=== PATIENT | female | born 1955 | race Caucasian/White ===

== ENCOUNTER 2019-02-06 19:05 | Emergency (ER) | payer MEDICARE ==
--- NOTE | 2019-02-06 19:45 | ED ---
Adult Trauma - HPI Summary HPI Summary: This pt is a 63 y/o female presenting to [facility] c/o right sided back pain s/p mechanical fall today. Pt reports that at about 18:00 today pt stepped on an icy step and fell down two steps. She notes she landed flat and hit her right sided back. Denies head strike or LOC. She reports she was able to ambulate after fall. Pt describes a sharp pain on the right side of her back. Denies abd pain, headache. Her medications include Crestor and Zoloft. Denies any anticoagulants. - History of Current Complaint Chief Complaint: EDGeneral Stated Complaint: FELL DOWN THE STAIRS PER PT Time Seen by Provider: 02/06/19 19:42 Hx Obtained From: Patient Mechanism of Injury: Fall Ambulatory at the Scene: Yes Loss of Consciousness: no loss of consciousness Onset/Duration: Started Hours Ago, Still Present Onset of Pain: Immediate Current Severity: Severe Pain Intensity: 10 Pain Scale Used: 0-10 Numeric Location: Back - right sided Character: Sharp Aggravating Factor(s): Other - lying down Alleviating Factor(s): Other - standing up Associated Signs & Symptoms: Negative: Abdominal Pain, Fever, Loss of Consciousness, Significant Blood Loss, Other: - headache - Allergy/Home Medications Allergies/Adverse Reactions: Allergies Allergy/AdvReac Type Severity Reaction Status Date / Time doxycycline Allergy Nausea And Verified 02/06/19 19:22 Vomiting Penicillins Allergy Hives Verified 02/06/19 19:22 Home Medications: Home Medications Rosuvastatin Calcium [Crestor] 20 mg PO DAILY WITH MEAL 02/06/19 [History Confirmed 02/06/19] Sertraline HCl [Zoloft] 50 mg PO BEDTIME 02/06/19 [History Confirmed 02/06/19] PMH/Surg Hx/FS Hx/Imm Hx Endocrine/Hematology History: Denies: Hx Diabetes Cardiovascular History: Reports: Hx Hypercholesterolemia Infectious Disease History: No Infectious Disease History: Denies: Traveled Outside the [place] in Last 30 Days - Family History Known Family History: Positive: Non-Contributory - Social History Alcohol Use: Occasionally Substance Use Type: Reports: None Smoking Status (MU): Former Smoker Review of Systems Negative: Fever Negative: Abdominal Pain Musculoskeletal: Other - POS: right sided back pain Negative: Headache All Other Systems Reviewed And Are Negative: Yes Physical Exam - Summary Physical Exam Summary: Appearance: Well-appearing, Well-nourished, lying in bed comfortably Skin: Warm, dry, no obvious rash. Right buttocks has large soft ball size hematoma with some associated ecchymosis. Eyes: sclera anicteric, no conjunctival pallor ENT: mucous membranes moist, pharynx appears normal Neck: Supple, nontender Respiratory: Clear to auscultation, no signs of respiratory distress Cardiovascular: Normal S1, S2. No murmurs. Normal distal pulses in tibial and radial bilaterally. Abdomen: Soft, nontender, normal active bowel sounds present Musculoskeletal: Strength/ROM Intact Neurological: A&Ox3, awake and alert, mentation is normal, speech is fluent and appropriate Psychiatric: affect is normal, does not appear anxious or depressed Triage Information Reviewed: Yes Vital Signs On Initial Exam: Initial Vitals Temp Pulse Resp BP Pulse Ox 98.8 F 104 24 199/111 100 02/06/19 19:15 02/06/19 19:15 02/06/19 19:15 02/06/19 19:15 02/06/19 19:15 Vital Signs Reviewed: Yes Diagnostics - Vital Signs Vital Signs Temp Pulse Resp BP Pulse Ox 02/06/19 19:15 98.8 F 104 24 199/111 100 - Laboratory Result Diagrams: 02/06/19 19:50 02/06/19 19:50 Lab Statement: Any lab studies that have been ordered have been reviewed, and results considered in the medical decision making process. - CT CT abdomen/Pelvis CT Interpretation Completed By: Radiologist Summary of CT Findings: IMPRESSION: 1. Medial right buttocks subcutaneous hematoma measuring 9.7 x 10.8 x 4.9 cm with irregular density at the anteromedial aspect suggesting active bleeding during acquisition of this scan. There is surrounding subcutaneous induration or hemorrhagic infiltration. 2. Otherwise negative CT abdomen/pelvis. No acute fracture is seen. Dr. Arguello has reviewed this report. Adult Trauma Course/Dx - Course Assessment/Plan: Pt is a 63 y/o female who presents to the ED with sharp right sided back pain s/p mechanical fall today. Pt reports that at about 18:00 today pt stepped on an icy step and fell down two steps. Denies head strike or LOC. She reports she was able to ambulate after fall. Lab tests are unremarkable. UA is negative. On exam, right buttocks has large soft ball size hematoma with some associated ecchymosis. CT abd/pelvis shows 1. Medial right buttocks subcutaneous hematoma measuring 9.7 x 10.8 x 4.9 cm with irregular density at the anteromedial aspect suggesting active bleeding during acquisition of this scan. There is surrounding subcutaneous induration or hemorrhagic infiltration. 2. Otherwise negative CT abdomen/pelvis. No acute fracture is seen. In the ED course the pt received IV fluids, morphine, percocet. Pt will be discharged home with follow up from surgery. She was given a rx for percocet. Return precautions were given. Discussed with Dr. Velásquez, surgeon, who agrees with discharge plan and pt can follow up in his office on , 02/09. - Diagnoses Provider Diagnoses: Hematoma - Physician Notifications Discussed Care Of Patient With: Perry Velásquez - surgeon Time Discussed With Above Provider: 21:52 Instructed by Provider To: Other - Discussed with Dr. Velásquez who agrees with discharge plan and pt can follow up in his office on 02/09. Discharge - Sign-Out/Discharge Documenting (check all that apply): Patient Departure - Discharge home Patient Received Moderate/Deep Sedation with Procedure: No - Discharge Plan Condition: Good Disposition: HOME Prescriptions: oxyCODONE/Acetamin 5/325 MG* [Percocet 5/325 TAB*] 2 tab PO Q4H PRN #16 tab MDD 4 tabs PRN Reason: Pain Patient Education Materials: Hematoma (ED) Referrals: Perry Velásquez MD [Medical Doctor] - Additional Instructions: You have a quite large hematoma on the right buttock. It is not likely to get any larger, but it will take several weeks, perhaps even a couple of months, for your body to absorb the blood and heal it. I would like to have you see a general surgeon in the office toward the end of the week or early next week, as these sometimes develop complications and do need to be monitored as they heal. - Billing Disposition and Condition Condition: GOOD Disposition: Home - Attestation Statements Document Initiated by Scribe: Yes Documenting Scribe: Clover Ortiz Provider For Whom Cristi is Documenting (Include Credential): Roberth Arguello MD Scribe Attestation: I, Clover Ortiz, scribed for Roberth Arguello MD on 02/07/19 at 1421. Scribe Documentation Reviewed: Yes Provider Attestation: The documentation as recorded by the scribe, Clover Ortiz accurately reflects the service I personally performed and the decisions made by me, Roberth Arguello MD Status of Scribe Document: Viewed
[2019-02-06] MEDS ORDERED: NS 0.9% 1000 ML** 2,000 ML IV ONE (19:47)
[2019-02-06] MEDS ORDERED: Morphine 4 MG/ML VIAL (1 ml) 4 MG/ML VIAL IV ONE (19:47)
[2019-02-06 20:06] LABS: ABS Basophils 0 10^3/ul (0-0.2); ABS Eosinophils 0.1 10^3/ul (0-0.6); ABS Lymphocytes 1.2 10^3/ul (1.0-4.8); ABS Monocytes 0.5 10^3/ul (0-0.8); ABS Neutrophils 8.2 10^3/ul (1.5-7.7); ABS Nucleated RBC 0 10^3/ul; Eosinophil % 1.1 %; Hematocrit 43 % (33-41); Hemoglobin 14.5 g/dL (12.0-16.0); Lymphocyte % 12.1 %; Mean Corpuscular HGB Conc 34 g/dL (31-36); Mean Corpuscular Hemoglobin 30 pg (27-31); Mean Corpuscular Volume 88 fL (80-97); Mean Platelet Volume 8.1 fL (7.4-10.4); Nucleated Red Blood Cells % 0; Platelet Count 272 10^3/uL (150-450); Red Blood Count 4.85 10^6 /uL (3.70-4.87); Red Cell Distribution Width 13 % (10.5-15)
[2019-02-06 20:23] LABS: Albumin 4.4 g/dL (3.2-5.2); Albumin/Globulin Ratio 1.4 (1-3); BUN/Creatinine Ratio 22.3 (8-20); Calcium 9.5 mg/dL (8.6-10.3); EGFR African American 72.3 (>60); EGFR Non-African American 59.8 (>60); Globulin 3.1 g/dL (2-4); Total Bilirubin 0.5 mg/dL (0.2-1.0); Total Protein 7.5 g/dL (6.4-8.9)
[2019-02-06] MEDS ORDERED: Iodixanol* (CONTRAST) 320 MG/ML 100 ML SDV IV ONE (20:30)
[2019-02-06] MEDS ORDERED: oxyCODONE/Acetamin 5/325 MG* TAB PO ONE (21:04)
[2019-02-06 21:10] LABS: Urine Appearance Cloudy; Urine Bilirubin Negative (Negative); Urine Blood Negative (Negative); Urine Color Yellow; Urine Glucose Negative (Negative); Urine Ketones Negative (Negative); Urine Nitrite Negative (Negative); Urine Protein Negative (Negative); Urine Specific Gravity 1.023 (1.010-1.030); Urine Urobilinogen Negative (Negative)
[2019-02-06 22:06] VITALS: BP 120/78
== END 2019-02-06 22:04 | disposition home or self-care (01) ==
LOC: ED 19:05
DX: S30.0XXA Contusion of lower back and pelvis, initial encounter (principal); W00.1XXA Fall from stairs and steps due to ice and snow, initial encounter; E78.00 Pure hypercholesterolemia, unspecified; Z79.899 Other long term (current) drug therapy; Z88.3 Allergy status to other anti-infective agents; Z88.0 Allergy status to penicillin; Z87.891 Personal history of nicotine dependence
CPT/HCPCS: 36415; 74177; 80053; 81003; 85025; 96361; 96374; 99284; A9270-GY; J2270; Q9967